=== PATIENT | female | born 2005 | race African-American/Black ===

== ENCOUNTER 2024-02-19 15:43 | Emergency (ER) | payer SELFPAY | END 2024-02-19 16:20 | disposition home or self-care (01) | LOC: NAV ERS 15:43 | DX: S00.86XA Insect bite (nonvenomous) of other part of head, initial encounter (principal); S10.96XA Insect bite of unspecified part of neck, initial encounter; S20.96XA Insect bite (nonvenomous) of unspecified parts of thorax, initial encounter; S40.861A Insect bite (nonvenomous) of right upper arm, initial encounter; S40.862A Insect bite (nonvenomous) of left upper arm, initial encounter; W57.XXXA Bitten or stung by nonvenomous insect and other nonvenomous arthropods, initial encounter | CPT/HCPCS: 99282 ==